=== PATIENT | male | born 1990 | race Caucasian/White ===

== ENCOUNTER 2022-11-11 15:17 | Emergency (ER) | payer SELFPAY ==
[~2022-11-11] VITALS: Ht 177.8 cm; Wt 79.4 kg
[2022-11-11 15:31] VITALS: BP 121/72
--- NOTE | 2022-11-11 15:45 | NUR ---
32/M WALKED IN C/O FEVER, SORE THROAT, AND HEADACHE ACCOMPANIED BY NAUSEA VOMITING X 3 DAYS. PT REPORTS TAKING TYLENOL YESTERDAY AND TODAY WITH MILD RELIEF. TEMP 100.4 ORAL AT TRIAGE AT THIS TIME. DENIES COUGH. PMH: DENIES
[2022-11-11] MEDS ORDERED: ONDANSETRON 4 MG ODT PO ONE (17:45)
[2022-11-11] MEDS ORDERED: ONDA-188 PO (18:22)
[2022-11-11] MEDS ORDERED: LIDO15SO PO (18:22)
[2022-11-11] MEDS ORDERED: IBUP-2213 PO (18:22)
[2022-11-11] MEDS ORDERED: PENI500T20 PO (18:22)
[2022-11-11 18:40] VITALS: BP 126/74
== END 2022-11-11 18:40 | disposition home or self-care (01) ==
LOC: MED 15:17
DX: K52.9 Noninfective gastroenteritis and colitis, unspecified (principal); J02.8 Acute pharyngitis due to other specified organisms; B96.89 Other specified bacterial agents as the cause of diseases classified elsewhere; Z79.899 Other long term (current) drug therapy
CPT/HCPCS: 87081; 99283; Q0162